=== PATIENT | male | born 1945 | race Caucasian/White ===

== ENCOUNTER 2021-03-21 11:21 | Inpatient (IN) ==
[2021-03-21] MEDS ORDERED: methylPREDNISolone 125 MG/2 ML VIAL IVP ONE (11:40)
[2021-03-21] MEDS ORDERED: Furosemide 40 MG/4 ML VIAL IVP ONE (11:41)
[2021-03-21 11:57] LABS: Basophils # 0.1 K/mcL (0.0-0.2); Basophils % 0.6 %; Eosinophils # 0.3 K/mcL (0.0-0.6); Eosinophils % 1.7 %; Hematocrit 33.8 % (37.5-50.1); Hemoglobin 10.7 g/dL (12.9-16.9); Immature Granulocytes % 1.1 % (0-4); Lymphocytes # 1.8 K/mcL (0.6-4.6); Lymphocytes % 11.8 %; Mean Corpuscular HGB Conc 31.7 g/dL (31.6-35.5); Mean Corpuscular Hemoglobin 27.2 pg (28.0-33.3); Mean Platelet Volume 9.3 fL (9.4-12.4); Monocytes # 1.7 K/mcL (0.0-1.3); Monocytes % 10.9 %; Platelet Count 420 K/mcL (140-400); Red Blood Count 3.93 M/mcL (4.19-5.50); Red Cell Distribution Width 17.4 % (11.5-14.5); Segmented Neutrophils % 73.9 %; White Blood Count 15.5 K/mcL (4.3-11.1)
[2021-03-21 11:58] LABS: Neutrophils # 11.5 K/mcL (1.6-8.9)
[2021-03-21] MEDS ORDERED: 0.9 % Sodium Chloride 500 ML IVC ONE (12:03)
[2021-03-21] MEDS ORDERED: Ipratropium/Albuterol Neb 3 ML IH ONE (12:03)
[2021-03-21] MEDS ORDERED: Piperacillin/Tazobactam 3.375 GM in Water for inj. (sterile) 20 ML IVP ONE (12:04)
[2021-03-21] MEDS ORDERED: levoFLOXacin 750 MG/150 ML 750 MG/150 ML BAG IVPB ONE (12:04)
[2021-03-21 12:10] LABS: BUN/Creatinine Ratio 23 (6-26); Blood Urea Nitrogen 20 mg/dL (8-23); Calcium 8.4 mg/dL (8.6-10.3); Carbon Dioxide 23 mEq/L (23-29); Chloride 104 mEq/L (98-107); Glucose 117 mg/dL (70-105); Osmolality,Calculated 292 (280-300); Sodium 139 mEq/L (136-145); Troponin I 0.03 ng/mL (< 0.04); eGFR For African Americans > 60 (> 60); eGFR For Non-African Americans > 60 (> 60)
[2021-03-21 12:18] LABS: Bilirubin,Urine Negative (Negative); Blood,Urine Negative (Negative); Clarity,Urine Clear (Clear); Color,Urine Yellow (Yellow); Glucose,Urine (UA) Normal (Normal); Ketones,Urine Negative (Negative); Leukocyte Esterase,Urine Negative (Negative); Nitrite,Urine Negative (Negative); PH,Urine 5.5 pH Units (5.0-8.0); Protein,Urine Negative (Neg-Trace); Urobilinogen,Urine Normal (Normal)
[2021-03-21 12:40] LABS: INR 11.1; Prothrombin Time 120.4 Seconds (9.4-12.1)
[2021-03-21] MEDS ORDERED: PHYTONADIONE IVPB ONE (13:15)
[2021-03-21] MEDS ORDERED: SODIUM CHLORIDE 0.9% IVPB ONE (13:15)
[2021-03-21 13:16] LABS: ABG Base Excess -3 mEq/L (-2 to 3); ABG HCO3 21 mEq/L (21-27); ABG Oxygen Saturation 95 % (95-98); ABG PCO2 33 mmHg (35-45); ABG PH 7.41 pH Units (7.32-7.45); ABG PO2 74 mmHg (85-104); ABG TCO2 22 mEq/L (20-26)
[2021-03-21] MEDS ORDERED: Albuterol 2.5 MG/3 ML NEBULIZER IH PRN (16:07)
[2021-03-21] MEDS ORDERED: Ondansetron 4 MG/2 ML VIAL IVP PRN (16:24)
[2021-03-21] MEDS ORDERED: Naloxone 0.4 MG/ML INJ IVP PRN (16:24)
[2021-03-21] MEDS ORDERED: MOM Conc 10 ML UD.LIQ PO PRN (16:24)
[2021-03-21] MEDS ORDERED: 0.9 % Sodium Chloride 1,000 ML IVC SCH (16:30)
[2021-03-21] MEDS: *HR* OxyCODONE/APAP 7.5/325 TABLET PO PRN (17:13)
[2021-03-21] MEDS ORDERED: *HR* LORazepam 1 MG TABLET PO PRN (17:17)
[2021-03-21] MEDS ORDERED: *HR* LORazepam 2 MG/ML VIAL IM PRN (17:17)
[2021-03-21] MEDS: 0.9 % Sodium Chloride w KCl 20 MEQ/1,000 ML MLS IVC SCH (20:56)
[2021-03-21] MEDS: Sennosides 8.6 MG TABLET PO SCH (21:01)
[2021-03-21] MEDS: Gabapentin 100 MG CAPSULE PO SCH (21:04)
[2021-03-21] MEDS: Melatonin 3 MG TABLET PO PRN (21:05)
[2021-03-21] MEDS: Acetaminophen 325 MG TABLET PO PRN (21:29)
[2021-03-21 21:30] LABS: Bilirubin,Urine Negative (Negative); Blood,Urine Negative (Negative); Clarity,Urine Clear (Clear); Color,Urine Yellow (Yellow); Glucose,Urine (UA) Normal (Normal); Ketones,Urine Negative (Negative); Leukocyte Esterase,Urine Negative (Negative); Nitrite,Urine Negative (Negative); Protein,Urine Negative (Neg-Trace); Urobilinogen,Urine Normal (Normal)
[2021-03-22 05:23] LABS: Hematocrit 28.8 % (37.5-50.1); Hemoglobin 9.1 g/dL (12.9-16.9); Mean Corpuscular HGB Conc 31.6 g/dL (31.6-35.5); Mean Corpuscular Hemoglobin 27.2 pg (28.0-33.3); Mean Corpuscular Volume 86.2 fL (83.0-100.0); Mean Platelet Volume 8.7 fL (9.4-12.4); Platelet Count 319 K/mcL (140-400); Red Blood Count 3.34 M/mcL (4.19-5.50); Red Cell Distribution Width 17.4 % (11.5-14.5); White Blood Count 10.8 K/mcL (4.3-11.1)
[2021-03-22 05:32] LABS: INR 1.4
[2021-03-22 05:51] LABS: Alanine Aminotransferase 11 Units/L (7-52); Albumin/Globulin Ratio 1.2 (1.1-2.2); Alkaline Phosphatase 76 Units/L (34-104); Aspartate Amino Transferase 16 Units/L (13-39); BUN/Creatinine Ratio 22 (6-26); Bilirubin,Total 0.4 mg/dL (0.3-1.0); Blood Urea Nitrogen 22 mg/dL (8-23); Calcium 7.7 mg/dL (8.6-10.3); Carbon Dioxide 24 mEq/L (23-29); Chloride 107 mEq/L (98-107); Globulin 2.6 g/dL (2.4-3.5); Glucose 116 mg/dL (70-105); Magnesium 1.5 mg/dL (1.6-2.6); Osmolality,Calculated 292 (280-300); Phosphorous 3.2 mg/dL (2.7-4.5); Sodium 139 mEq/L (136-145); Total Protein 5.6 g/dL (6.4-8.9); eGFR For African Americans > 60 (> 60); eGFR For Non-African Americans > 60 (> 60)
[2021-03-22] MEDS: Gabapentin 100 MG CAPSULE PO SCH ×2 (09:02→22:21)
[2021-03-22] MEDS: Spironolactone 25 MG TABLET PO SCH (09:02)
[2021-03-22] MEDS: lisinopriL 10 MG TABLET PO SCH (09:02)
[2021-03-22] MEDS: Furosemide 40 MG TABLET PO SCH (09:02)
[2021-03-22] MEDS: Beer can PO SCH ×3 (09:03→17:12)
[2021-03-22] MEDS: Metoprolol XL (24 HR) Succ 50 MG TAB.ER.24H PO SCH (09:03)
[2021-03-22] MEDS: *HR* OxyCODONE/APAP 7.5/325 TABLET PO PRN ×2 (09:08→17:13)
[2021-03-22] MEDS: 0.9 % Sodium Chloride w KCl 20 MEQ/1,000 ML MLS IVC SCH (10:28)
[2021-03-22] MEDS: Acetaminophen 325 MG TABLET PO PRN ×2 (15:10→22:21)
[2021-03-22] MEDS: cefTRIAXone 1,000 MG in Water for inj. (sterile) 10 ML IVP SCH (17:32)
[2021-03-22] MEDS ORDERED: *HR* Warfarin 2.5 MG TABLET PO ONE (18:00)
[2021-03-22] MEDS ORDERED: Warfarin perPT PO PRN (18:00)
[2021-03-22] MEDS: Sennosides 8.6 MG TABLET PO SCH (22:21)
[2021-03-22] MEDS: Mag Hydrox/Al Hydrox/Simeth 30 ML UDC PO PRN (22:21)
[2021-03-22] MEDS: Melatonin 3 MG TABLET PO PRN (22:21)
[2021-03-23] MEDS: Ondansetron ODT 4 MG TAB.RAPDIS SL PRN ×2 (01:32→17:03)
[2021-03-23 05:56] LABS: Basophils # 0.1 K/mcL (0.0-0.2); Basophils % 0.5 %; Eosinophils # 0.3 K/mcL (0.0-0.6); Hematocrit 30.1 % (37.5-50.1); Hemoglobin 9.4 g/dL (12.9-16.9); Immature Granulocytes % 1.4 % (0-4); Lymphocytes # 1.8 K/mcL (0.6-4.6); Lymphocytes % 13.5 %; Mean Corpuscular HGB Conc 31.2 g/dL (31.6-35.5); Mean Corpuscular Volume 86.5 fL (83.0-100.0); Mean Platelet Volume 8.6 fL (9.4-12.4); Monocytes # 1.5 K/mcL (0.0-1.3); Monocytes % 11.2 %; Neutrophils # 9.3 K/mcL (1.6-8.9); Platelet Count 288 K/mcL (140-400); Red Blood Count 3.48 M/mcL (4.19-5.50); Red Cell Distribution Width 18.1 % (11.5-14.5); Segmented Neutrophils % 71.4 %
[2021-03-23 06:01] LABS: INR 1.3; Prothrombin Time 15.4 Seconds (9.4-12.1)
[2021-03-23 06:12] LABS: BUN/Creatinine Ratio 24 (6-26); Blood Urea Nitrogen 20 mg/dL (8-23); Calcium 7.8 mg/dL (8.6-10.3); Carbon Dioxide 24 mEq/L (23-29); Chloride 107 mEq/L (98-107); Glucose 93 mg/dL (70-105); Osmolality,Calculated 286 (280-300); Potassium 4.3 mEq/L (3.5-5.1); Sodium 137 mEq/L (136-145); eGFR For African Americans > 60 (> 60); eGFR For Non-African Americans > 60 (> 60)
[2021-03-23] MEDS: Metoprolol XL (24 HR) Succ 50 MG TAB.ER.24H PO SCH (08:42)
[2021-03-23] MEDS: Gabapentin 100 MG CAPSULE PO SCH ×2 (08:42→21:32)
[2021-03-23] MEDS: Furosemide 40 MG TABLET PO SCH (08:42)
[2021-03-23] MEDS: Spironolactone 25 MG TABLET PO SCH (08:42)
[2021-03-23] MEDS: cefTRIAXone 1,000 MG in Water for inj. (sterile) 10 ML IVP SCH (08:42)
[2021-03-23] MEDS: lisinopriL 10 MG TABLET PO SCH (08:42)
[2021-03-23] MEDS: Beer can PO SCH ×3 (08:43→19:17)
[2021-03-23] MEDS: *HR* OxyCODONE/APAP 7.5/325 TABLET PO PRN ×2 (08:49→21:31)
[2021-03-23] MEDS: Azithromycin 500 MG in 0.9 % Sodium Chloride 250 ML IVPB SCH (15:19)
[2021-03-23] MEDS: Acetaminophen 325 MG TABLET PO PRN (15:29)
[2021-03-23] MEDS ORDERED: *HR* Warfarin 2.5 MG TABLET PO ONE (18:00)
[2021-03-23] MEDS: Sennosides 8.6 MG TABLET PO SCH (21:32)
[2021-03-23] MEDS: Mag Hydrox/Al Hydrox/Simeth 30 ML UDC PO PRN (21:32)
[2021-03-24 05:19] LABS: Basophils # 0.1 K/mcL (0.0-0.2); Basophils % 0.5 %; Eosinophils # 0.3 K/mcL (0.0-0.6); Eosinophils % 2.3 %; Immature Granulocytes % 1.7 % (0-4); Lymphocytes # 1.5 K/mcL (0.6-4.6); Lymphocytes % 13.4 %; Mean Corpuscular HGB Conc 32.1 g/dL (31.6-35.5); Mean Corpuscular Hemoglobin 27.6 pg (28.0-33.3); Mean Corpuscular Volume 85.9 fL (83.0-100.0); Mean Platelet Volume 9.1 fL (9.4-12.4); Monocytes # 1.6 K/mcL (0.0-1.3); Monocytes % 13.9 %; Neutrophils # 7.8 K/mcL (1.6-8.9); Platelet Count 245 K/mcL (140-400); Red Blood Count 3.26 M/mcL (4.19-5.50); Segmented Neutrophils % 68.2 %; White Blood Count 11.5 K/mcL (4.3-11.1)
[2021-03-24 05:24] LABS: INR 1.4; Prothrombin Time 16.5 Seconds (9.4-12.1)
[2021-03-24 05:36] LABS: BUN/Creatinine Ratio 23 (6-26); Blood Urea Nitrogen 17 mg/dL (8-23); Calcium 7.8 mg/dL (8.6-10.3); Carbon Dioxide 24 mEq/L (23-29); Chloride 106 mEq/L (98-107); Glucose 85 mg/dL (70-105); Osmolality,Calculated 285 (280-300); Potassium 3.7 mEq/L (3.5-5.1); Sodium 137 mEq/L (136-145); eGFR For African Americans > 60 (> 60); eGFR For Non-African Americans > 60 (> 60)
[2021-03-24] MEDS: Beer can PO SCH ×3 (09:04→17:57)
[2021-03-24] MEDS: cefTRIAXone 1,000 MG in Water for inj. (sterile) 10 ML IVP SCH (09:04)
[2021-03-24] MEDS: lisinopriL 10 MG TABLET PO SCH (09:06)
[2021-03-24] MEDS: Gabapentin 100 MG CAPSULE PO SCH ×2 (09:07→19:43)
[2021-03-24] MEDS: Spironolactone 25 MG TABLET PO SCH (09:07)
[2021-03-24] MEDS: Metoprolol XL (24 HR) Succ 50 MG TAB.ER.24H PO SCH (09:08)
[2021-03-24] MEDS: Furosemide 40 MG TABLET PO SCH (09:08)
[2021-03-24] MEDS: *HR* OxyCODONE/APAP 7.5/325 TABLET PO PRN ×2 (09:34→18:03)
[2021-03-24] MEDS: Azithromycin 500 MG in 0.9 % Sodium Chloride 250 ML IVPB SCH (13:45)
[2021-03-24] MEDS: Acetaminophen 325 MG TABLET PO PRN (13:55)
[2021-03-24] MEDS ORDERED: *HR* Warfarin 2.5 MG TABLET PO ONE (18:00)
[2021-03-24 19:38] LABS: Adenovirus F 40/41 PCR Not detected (Not detect); Astrovirus PCR Not detected (Not detect); C.difficile Toxin A/B Gene PCR Not detected (Not detect); Campylobacter by PCR Not detected (Not detect); Cryptosporidium by PCR Not detected (Not detect); Cyclospora cayetanensis PCR Not detected (Not detect); E. coli O157 by PCR Not detected (Not detect); Entamoeba histolytica PCR Not detected (Not detect); Enteroaggregative E.coli(EAEC) Not detected (Not detect); Enteropathogenic E.coli(EPEC) Not detected (Not detect); Enterotoxigenic E.coli (ETEC) Not detected (Not detect); Giardia lamblia PCR Not detected (Not detect); Norovirus GI/GII PCR Not detected (Not detect); Plesiomonas shigelloides PCR Not detected (Not detect); Rotavirus A PCR Not detected (Not detect); Salmonella PCR Not detected (Not detect); Sapovirus PCR Not detected (Not detect); Shig/EnteroinvasiveE coli EIEC Not detected (Not detect); Shigalike tox-prod E coli STEC Not detected (Not detect); Vibrio PCR Not detected (Not detect); Vibrio cholerae PCR Not detected (Not detect); Yersinia enterocolitica PCR Not detected (Not detect)
[2021-03-25 05:22] LABS: INR 1.6; Prothrombin Time 18.7 Seconds (9.4-12.1)
[2021-03-25] MEDS: Gabapentin 100 MG CAPSULE PO SCH ×2 (09:36→21:34)
[2021-03-25] MEDS: *HR* OxyCODONE/APAP 7.5/325 TABLET PO PRN ×2 (09:36→19:54)
[2021-03-25] MEDS: Spironolactone 25 MG TABLET PO SCH (09:37)
[2021-03-25] MEDS: Beer can PO SCH ×4 (09:37→19:54)
[2021-03-25] MEDS: Furosemide 40 MG TABLET PO SCH (09:37)
[2021-03-25] MEDS: lisinopriL 10 MG TABLET PO SCH (09:37)
[2021-03-25] MEDS: cefTRIAXone 1,000 MG in Water for inj. (sterile) 10 ML IVP SCH (09:37)
[2021-03-25] MEDS: Metoprolol XL (24 HR) Succ 50 MG TAB.ER.24H PO SCH (09:37)
[2021-03-25] MEDS: Acetaminophen 325 MG TABLET PO PRN (14:01)
[2021-03-25] MEDS: Azithromycin 500 MG in 0.9 % Sodium Chloride 250 ML IVPB SCH (14:06)
[2021-03-25 14:57] LABS: Basophils # 0.1 K/mcL (0.0-0.2); Basophils % 0.5 %; Eosinophils # 0.2 K/mcL (0.0-0.6); Eosinophils % 1.5 %; Hematocrit 31.4 % (37.5-50.1); Hemoglobin 9.7 g/dL (12.9-16.9); Immature Granulocytes % 1.3 % (0-4); Lymphocytes # 1.8 K/mcL (0.6-4.6); Lymphocytes % 11.8 %; Mean Corpuscular HGB Conc 30.9 g/dL (31.6-35.5); Mean Corpuscular Hemoglobin 27.2 pg (28.0-33.3); Mean Platelet Volume 9.4 fL (9.4-12.4); Monocytes % 9.7 %; Neutrophils # 11.2 K/mcL (1.6-8.9); Platelet Count 261 K/mcL (140-400); Red Blood Count 3.57 M/mcL (4.19-5.50); Red Cell Distribution Width 18.4 % (11.5-14.5); Segmented Neutrophils % 75.2 %; White Blood Count 14.9 K/mcL (4.3-11.1)
[2021-03-25 14:58] LABS: Monocytes # 1.5 K/mcL (0.0-1.3)
[2021-03-25 15:10] LABS: BUN/Creatinine Ratio 20 (6-26); Blood Urea Nitrogen 17 mg/dL (8-23); Carbon Dioxide 25 mEq/L (23-29); Chloride 103 mEq/L (98-107); Glucose 132 mg/dL (70-105); Osmolality,Calculated 281 (280-300); Potassium 3.9 mEq/L (3.5-5.1); Sodium 134 mEq/L (136-145); eGFR For African Americans > 60 (> 60); eGFR For Non-African Americans > 60 (> 60)
[2021-03-25] MEDS ORDERED: *HR* Warfarin 2.5 MG TABLET PO ONE (18:00)
[2021-03-25 23:33] VITALS: RESP 16
[2021-03-26 04:47] LABS: Basophils # 0.1 K/mcL (0.0-0.2); Basophils % 0.6 %; Eosinophils # 0.3 K/mcL (0.0-0.6); Eosinophils % 1.9 %; Hematocrit 30.3 % (37.5-50.1); Hemoglobin 9.5 g/dL (12.9-16.9); Immature Granulocytes % 1.4 % (0-4); Lymphocytes # 1.6 K/mcL (0.6-4.6); Lymphocytes % 10.9 %; Mean Corpuscular HGB Conc 31.4 g/dL (31.6-35.5); Mean Corpuscular Volume 86.1 fL (83.0-100.0); Mean Platelet Volume 9.6 fL (9.4-12.4); Monocytes # 1.7 K/mcL (0.0-1.3); Monocytes % 11.7 %; Platelet Count 242 K/mcL (140-400); Red Blood Count 3.52 M/mcL (4.19-5.50); Red Cell Distribution Width 18.1 % (11.5-14.5); Segmented Neutrophils % 73.5 %; White Blood Count 14.3 K/mcL (4.3-11.1)
[2021-03-26 04:49] LABS: INR 1.8
[2021-03-26 05:03] LABS: Neutrophils # 10.5 K/mcL (1.6-8.9)
[2021-03-26 05:11] LABS: BUN/Creatinine Ratio 19 (6-26); Blood Urea Nitrogen 14 mg/dL (8-23); Carbon Dioxide 24 mEq/L (23-29); Chloride 103 mEq/L (98-107); Glucose 85 mg/dL (70-105); Osmolality,Calculated 278 (280-300); Potassium 3.8 mEq/L (3.5-5.1); Sodium 134 mEq/L (136-145); eGFR For African Americans > 60 (> 60); eGFR For Non-African Americans > 60 (> 60)
[2021-03-26] MEDS: cefTRIAXone 1,000 MG in Water for inj. (sterile) 10 ML IVP SCH (09:39)
[2021-03-26] MEDS: Spironolactone 25 MG TABLET PO SCH (09:40)
[2021-03-26] MEDS: Gabapentin 100 MG CAPSULE PO SCH (09:40)
[2021-03-26] MEDS: *HR* OxyCODONE/APAP 7.5/325 TABLET PO PRN ×2 (09:40→17:33)
[2021-03-26] MEDS: lisinopriL 10 MG TABLET PO SCH (09:40)
[2021-03-26] MEDS: Furosemide 40 MG TABLET PO SCH (09:40)
[2021-03-26] MEDS: Metoprolol XL (24 HR) Succ 50 MG TAB.ER.24H PO SCH (09:41)
[2021-03-26] MEDS: Beer can PO SCH ×3 (10:36→17:05)
[2021-03-26 11:09] VITALS: TEMP 97.4
[2021-03-26 17:34] VITALS: BP 97/59; PULSE 92; O2SAT 87
[2021-03-26] MEDS ORDERED: *HR* Warfarin 2.5 MG TABLET PO ONE (18:00)
== END 2021-03-26 17:55 | disposition other institution (70) | DRG 193 ==
LOC: INPGRE 11:21 → EMEROOGRE 11:21 → INPGRE 15:38
PROVIDERS: ADMIT Family Medicine; ATTEND Family Medicine

== ENCOUNTER 2021-03-26 16:15 | Inpatient (IN) ==
[2021-03-26] MEDS ORDERED: Warfarin perPT PO PRN (18:00)
[2021-03-26] MEDS ORDERED: *HR* Warfarin 3 MG TABLET PO SCH (21:00)
[2021-03-26] MEDS: Sennosides 8.6 MG TABLET PO SCH (21:13)
[2021-03-26] MEDS: Ondansetron 4 MG/2 ML VIAL IVP PRN (21:13)
[2021-03-26] MEDS: Gabapentin 100 MG CAPSULE PO SCH (21:13)
[2021-03-26] MEDS ORDERED: Perflutren Lipid Microsphere 1.3 ML in 0.9 % Sodium Chloride 8.7 ML IVP PRN (23:47)
[2021-03-27 05:06] LABS: Basophils # 0.1 K/mcL (0.0-0.2); Basophils % 0.3 %; Eosinophils % 0.8 %; Hematocrit 32.2 % (37.5-50.1); Hemoglobin 10.2 g/dL (12.9-16.9); Immature Granulocytes % 0.8 % (0-4); Lymphocytes # 0.9 K/mcL (0.6-4.6); Mean Corpuscular HGB Conc 31.7 g/dL (31.6-35.5); Mean Corpuscular Volume 85.2 fL (83.0-100.0); Mean Platelet Volume 9.5 fL (9.4-12.4); Monocytes # 1.5 K/mcL (0.0-1.3); Monocytes % 8.2 %; Neutrophils # 15.2 K/mcL (1.6-8.9); Platelet Count 255 K/mcL (140-400); Red Blood Count 3.78 M/mcL (4.19-5.50); Red Cell Distribution Width 18.2 % (11.5-14.5); Segmented Neutrophils % 84.9 %; White Blood Count 17.9 K/mcL (4.3-11.1)
[2021-03-27 05:07] LABS: Eosinophils # 0.1 K/mcL (0.0-0.6)
[2021-03-27 05:09] LABS: Prothrombin Time 22.3 Seconds (9.4-12.1)
[2021-03-27 05:19] LABS: BUN/Creatinine Ratio 19 (6-26); Blood Urea Nitrogen 17 mg/dL (8-23); Calcium 8.3 mg/dL (8.6-10.3); Carbon Dioxide 25 mEq/L (23-29); Chloride 104 mEq/L (98-107); Glucose 100 mg/dL (70-105); Osmolality,Calculated 284 (280-300); Potassium 4.3 mEq/L (3.5-5.1); Sodium 136 mEq/L (136-145); eGFR For African Americans > 60 (> 60); eGFR For Non-African Americans > 60 (> 60)
[2021-03-27] MEDS: Gabapentin 100 MG CAPSULE PO SCH ×2 (07:59→21:22)
[2021-03-27] MEDS: Furosemide 40 MG TABLET PO SCH (07:59)
[2021-03-27] MEDS: Metoprolol XL (24 HR) Succ 50 MG TAB.ER.24H PO SCH (07:59)
[2021-03-27] MEDS: Spironolactone 25 MG TABLET PO SCH (07:59)
[2021-03-27] MEDS: Beer can PO SCH ×3 (07:59→16:13)
[2021-03-27] MEDS: lisinopriL 10 MG TABLET PO SCH (07:59)
[2021-03-27] MEDS: Ondansetron 4 MG/2 ML VIAL IVP PRN ×2 (08:05→17:56)
[2021-03-27] MEDS: *HR* OxyCODONE/APAP 7.5/325 TABLET PO PRN ×2 (08:07→21:22)
[2021-03-27] MEDS ORDERED: *HR* Warfarin 2.5 MG TABLET PO ONE (18:00)
[2021-03-27] MEDS ORDERED: Famotidine 20 MG TABLET PO STA (21:16)
[2021-03-27] MEDS: Sennosides 8.6 MG TABLET PO SCH (21:22)
[2021-03-27] MEDS: Albuterol 2.5 MG/3 ML NEBULIZER IH PRN (21:44)
[2021-03-28 05:46] LABS: Basophils # 0.1 K/mcL (0.0-0.2); Basophils % 0.5 %; Eosinophils # 0.3 K/mcL (0.0-0.6); Eosinophils % 2.6 %; Hematocrit 30.6 % (37.5-50.1); Hemoglobin 9.7 g/dL (12.9-16.9); Lymphocytes # 1.5 K/mcL (0.6-4.6); Lymphocytes % 13.5 %; Mean Corpuscular HGB Conc 31.7 g/dL (31.6-35.5); Mean Corpuscular Hemoglobin 27.2 pg (28.0-33.3); Mean Platelet Volume 9.4 fL (9.4-12.4); Monocytes # 1.6 K/mcL (0.0-1.3); Monocytes % 14.4 %; Neutrophils # 7.3 K/mcL (1.6-8.9); Platelet Count 219 K/mcL (140-400); Red Blood Count 3.56 M/mcL (4.19-5.50); Red Cell Distribution Width 18.3 % (11.5-14.5); White Blood Count 10.8 K/mcL (4.3-11.1)
[2021-03-28 06:10] LABS: BUN/Creatinine Ratio 20 (6-26); Blood Urea Nitrogen 14 mg/dL (8-23); Carbon Dioxide 24 mEq/L (23-29); Chloride 107 mEq/L (98-107); Glucose 77 mg/dL (70-105); Osmolality,Calculated 285 (280-300); Potassium 3.7 mEq/L (3.5-5.1); Sodium 138 mEq/L (136-145); eGFR For African Americans > 60 (> 60); eGFR For Non-African Americans > 60 (> 60)
[2021-03-28] MEDS: Albuterol 2.5 MG/3 ML NEBULIZER IH PRN ×2 (06:55→20:08)
[2021-03-28] MEDS: Beer can PO SCH ×3 (08:47→16:04)
[2021-03-28] MEDS: lisinopriL 10 MG TABLET PO SCH (08:48)
[2021-03-28] MEDS: Metoprolol XL (24 HR) Succ 50 MG TAB.ER.24H PO SCH (08:48)
[2021-03-28] MEDS: Gabapentin 100 MG CAPSULE PO SCH ×2 (08:48→20:34)
[2021-03-28] MEDS: Furosemide 40 MG TABLET PO SCH (08:48)
[2021-03-28] MEDS: Spironolactone 25 MG TABLET PO SCH (08:49)
[2021-03-28] MEDS: *HR* OxyCODONE/APAP 7.5/325 TABLET PO PRN ×2 (09:22→20:35)
[2021-03-28 12:42] LABS: INR 3.3; Prothrombin Time 36.6 Seconds (9.4-12.1)
[2021-03-28] MEDS ORDERED: Mag Hydrox/Al Hydrox/Simeth 30 ML UDC PO PRN (13:32)
[2021-03-28] MEDS: Sennosides 8.6 MG TABLET PO SCH (20:34)
[2021-03-29 06:23] LABS: Prothrombin Time 44.8 Seconds (9.4-12.1)
[2021-03-29] MEDS: lisinopriL 10 MG TABLET PO SCH (08:45)
[2021-03-29] MEDS: Beer can PO SCH ×3 (08:46→17:07)
[2021-03-29] MEDS: Metoprolol XL (24 HR) Succ 50 MG TAB.ER.24H PO SCH (08:46)
[2021-03-29] MEDS: Spironolactone 25 MG TABLET PO SCH (08:46)
[2021-03-29] MEDS: Furosemide 40 MG TABLET PO SCH (08:46)
[2021-03-29] MEDS: Gabapentin 100 MG CAPSULE PO SCH ×2 (08:46→20:48)
[2021-03-29] MEDS: *HR* OxyCODONE/APAP 7.5/325 TABLET PO PRN ×2 (09:09→20:48)
[2021-03-29] MEDS: Sennosides 8.6 MG TABLET PO SCH (21:16)
[2021-03-30 06:14] LABS: INR 3.1; Prothrombin Time 34.3 Seconds (9.4-12.1)
[2021-03-30] MEDS: Beer can PO SCH ×3 (08:26→17:11)
[2021-03-30] MEDS: Metoprolol XL (24 HR) Succ 50 MG TAB.ER.24H PO SCH (08:26)
[2021-03-30] MEDS: Gabapentin 100 MG CAPSULE PO SCH ×2 (08:27→21:10)
[2021-03-30] MEDS: Furosemide 40 MG TABLET PO SCH (08:27)
[2021-03-30] MEDS: Spironolactone 25 MG TABLET PO SCH (08:27)
[2021-03-30] MEDS: lisinopriL 10 MG TABLET PO SCH (08:27)
[2021-03-30] MEDS: *HR* OxyCODONE/APAP 7.5/325 TABLET PO PRN (14:24)
[2021-03-30] MEDS ORDERED: *HR* Warfarin 1 MG TABLET PO ONE (18:00)
[2021-03-30] MEDS: Sennosides 8.6 MG TABLET PO SCH (21:10)
[2021-03-31 04:59] LABS: Basophils # 0.1 K/mcL (0.0-0.2); Basophils % 0.4 %; Eosinophils # 0.2 K/mcL (0.0-0.6); Eosinophils % 1.7 %; Hematocrit 33.4 % (37.5-50.1); Hemoglobin 10.7 g/dL (12.9-16.9); Immature Granulocytes % 0.7 % (0-4); Lymphocytes # 1.7 K/mcL (0.6-4.6); Lymphocytes % 12.2 %; Mean Corpuscular Hemoglobin 27.2 pg (28.0-33.3); Mean Corpuscular Volume 84.8 fL (83.0-100.0); Monocytes # 1.6 K/mcL (0.0-1.3); Monocytes % 11.7 %; Neutrophils # 10.1 K/mcL (1.6-8.9); Platelet Count 274 K/mcL (140-400); Red Blood Count 3.94 M/mcL (4.19-5.50); Red Cell Distribution Width 18.6 % (11.5-14.5); Segmented Neutrophils % 73.3 %; White Blood Count 13.8 K/mcL (4.3-11.1)
[2021-03-31 05:08] LABS: INR 2.1; Prothrombin Time 23.4 Seconds (9.4-12.1)
[2021-03-31 05:16] LABS: BUN/Creatinine Ratio 17 (6-26); Blood Urea Nitrogen 12 mg/dL (8-23); Calcium 8.5 mg/dL (8.6-10.3); Carbon Dioxide 25 mEq/L (23-29); Chloride 103 mEq/L (98-107); Glucose 91 mg/dL (70-105); Osmolality,Calculated 281 (280-300); Potassium 4.1 mEq/L (3.5-5.1); Sodium 136 mEq/L (136-145); eGFR For African Americans > 60 (> 60); eGFR For Non-African Americans > 60 (> 60)
[2021-03-31] MEDS: Furosemide 40 MG TABLET PO SCH (09:18)
[2021-03-31] MEDS: Spironolactone 25 MG TABLET PO SCH (09:18)
[2021-03-31] MEDS: Metoprolol XL (24 HR) Succ 25 MG TAB.ER.24H PO SCH (09:18)
[2021-03-31] MEDS: Gabapentin 100 MG CAPSULE PO SCH ×2 (09:18→21:53)
[2021-03-31] MEDS: lisinopriL 10 MG TABLET PO SCH (09:19)
[2021-03-31] MEDS: *HR* OxyCODONE/APAP 7.5/325 TABLET PO PRN ×2 (09:19→21:52)
[2021-03-31] MEDS: Beer can PO SCH ×4 (09:21→17:53)
[2021-03-31] MEDS ORDERED: *HR* Warfarin 2.5 MG TABLET PO ONE (18:00)
[2021-03-31] MEDS: Melatonin 3 MG TABLET PO PRN (21:52)
[2021-03-31] MEDS: Sennosides 8.6 MG TABLET PO SCH (21:54)
[2021-04-01 04:29] LABS: INR 2.1; Prothrombin Time 23.7 Seconds (9.4-12.1)
[2021-04-01] MEDS: Gabapentin 100 MG CAPSULE PO SCH ×2 (09:59→20:35)
[2021-04-01] MEDS: lisinopriL 10 MG TABLET PO SCH (10:00)
[2021-04-01] MEDS: Furosemide 40 MG TABLET PO SCH (10:01)
[2021-04-01] MEDS: Metoprolol XL (24 HR) Succ 25 MG TAB.ER.24H PO SCH (10:01)
[2021-04-01] MEDS: Spironolactone 25 MG TABLET PO SCH (10:01)
[2021-04-01] MEDS: *HR* OxyCODONE/APAP 7.5/325 TABLET PO PRN ×2 (10:01→20:36)
[2021-04-01] MEDS: Beer can PO SCH ×3 (10:14→18:19)
[2021-04-01] MEDS ORDERED: *HR* Warfarin 2.5 MG TABLET PO ONE (18:00)
[2021-04-01] MEDS: Melatonin 3 MG TABLET PO PRN (20:36)
[2021-04-01] MEDS: Sennosides 8.6 MG TABLET PO SCH (22:51)
[2021-04-02 04:48] LABS: Basophils # 0.1 K/mcL (0.0-0.2); Basophils % 0.6 %; Eosinophils # 0.3 K/mcL (0.0-0.6); Eosinophils % 2.9 %; Hematocrit 30.6 % (37.5-50.1); Hemoglobin 9.8 g/dL (12.9-16.9); Immature Granulocytes % 0.6 % (0-4); Lymphocytes # 1.8 K/mcL (0.6-4.6); Lymphocytes % 16.9 %; Mean Corpuscular Hemoglobin 27.4 pg (28.0-33.3); Mean Corpuscular Volume 85.5 fL (83.0-100.0); Mean Platelet Volume 9.2 fL (9.4-12.4); Monocytes # 1.5 K/mcL (0.0-1.3); Monocytes % 14.3 %; Neutrophils # 6.7 K/mcL (1.6-8.9); Platelet Count 246 K/mcL (140-400); Red Blood Count 3.58 M/mcL (4.19-5.50); Red Cell Distribution Width 18.2 % (11.5-14.5); Segmented Neutrophils % 64.7 %; White Blood Count 10.3 K/mcL (4.3-11.1)
[2021-04-02 04:53] LABS: INR 2.4; Prothrombin Time 27.4 Seconds (9.4-12.1)
[2021-04-02 05:01] LABS: BUN/Creatinine Ratio 17 (6-26); Blood Urea Nitrogen 14 mg/dL (8-23); Calcium 8.5 mg/dL (8.6-10.3); Carbon Dioxide 27 mEq/L (23-29); Chloride 99 mEq/L (98-107); Glucose 89 mg/dL (70-105); Osmolality,Calculated 276 (280-300); Potassium 3.7 mEq/L (3.5-5.1); Sodium 133 mEq/L (136-145); eGFR For African Americans > 60 (> 60); eGFR For Non-African Americans > 60 (> 60)
[2021-04-02] MEDS: lisinopriL 10 MG TABLET PO SCH (09:12)
[2021-04-02] MEDS: Beer can PO SCH ×3 (09:12→16:05)
[2021-04-02] MEDS: Spironolactone 25 MG TABLET PO SCH (09:13)
[2021-04-02] MEDS: Metoprolol XL (24 HR) Succ 25 MG TAB.ER.24H PO SCH (09:13)
[2021-04-02] MEDS: Gabapentin 100 MG CAPSULE PO SCH ×2 (09:13→20:28)
[2021-04-02] MEDS: Furosemide 40 MG TABLET PO SCH (09:13)
[2021-04-02] MEDS: *HR* OxyCODONE/APAP 7.5/325 TABLET PO PRN ×2 (11:56→20:28)
[2021-04-02] MEDS ORDERED: *HR* Warfarin 1 MG TABLET PO ONE (18:00)
[2021-04-02] MEDS: Melatonin 3 MG TABLET PO PRN (20:28)
[2021-04-02] MEDS: Sennosides 8.6 MG TABLET PO SCH (20:29)
[2021-04-03 04:59] LABS: INR 2.3; Prothrombin Time 26.1 Seconds (9.4-12.1)
[2021-04-03] MEDS: Beer can PO SCH ×2 (08:50→13:17)
[2021-04-03] MEDS: lisinopriL 10 MG TABLET PO SCH (08:51)
[2021-04-03] MEDS: Metoprolol XL (24 HR) Succ 25 MG TAB.ER.24H PO SCH (08:51)
[2021-04-03] MEDS: Spironolactone 25 MG TABLET PO SCH (08:51)
[2021-04-03] MEDS: Gabapentin 100 MG CAPSULE PO SCH (08:52)
[2021-04-03] MEDS: Furosemide 40 MG TABLET PO SCH (08:52)
[2021-04-03] MEDS: Sennosides 8.6 MG TABLET PO SCH (08:54)
[2021-04-03 09:45] VITALS: RESP 15
[2021-04-03] MEDS: *HR* OxyCODONE/APAP 7.5/325 TABLET PO PRN (10:32)
[2021-04-03 11:36] VITALS: BP 92/57; PULSE 79; TEMP 98; O2SAT 96
[2021-04-03 13:41] LABS: Adenovirus Not Detected (Not Detect); Bordetella Pertussis Not Detected (Not Detect); Chlamydophila pneumoniae Not Detected (Not Detect); Coronavirus 229E Not Detected (Not Detect); Coronavirus HKU1 Not Detected (Not Detect); Coronavirus NL63 Not Detected (Not Detect); Coronavirus OC43 Not Detected (Not Detect); Human Metapneumovirus Not Detected (Not Detect); Human Rhinovirus/Enterovirus Not Detected (Not Detect); Influenza A Subtype 2009 H1 Not Detected (Not Detect); Influenza B Not Detected (Not Detect); Mycoplasma pneumoniae Not Detected (Not Detect); Parainfluenza Virus 1 Not Detected (Not Detect); Parainfluenza Virus 2 Not Detected (Not Detect); Parainfluenza Virus 3 Not Detected (Not Detect); Parainfluenza Virus 4 Not Detected (Not Detect); Respiratory Syncytial Virus Not Detected (Not Detect); SARS-CoV-2 Not Detected (Not Detect)
[2021-04-03] MEDS ORDERED: *HR* Warfarin 2 MG TABLET PO ONE (18:00)
== END 2021-04-03 15:45 | DRG 945 ==
LOC: INPGRE 18:18
PROVIDERS: ADMIT Family Medicine; ATTEND Family Medicine